=== PATIENT | male | born 1990 | race Caucasian/White ===

== ENCOUNTER 2017-03-21 15:00 | Inpatient (IN) | payer OTHER ==
[~2017-03-21] VITALS: Ht 180.3 cm; Wt 71.7 kg
--- NOTE | ~2017-03-21 | HP ---
Unit #: [id number] #: [id number] Patient: MARY DIAZ [id number] [place] [address] [id number] MR#: [id number] NAME: MARY DIAZ. ROOM: P207 Age: 26 Sex: M Admission Date: 03/21/2017 : 1990 Attending Physician: Sebastien Winters M.D. Admitting Physician: Sebastien Winters M.D. Primary Care Physician: Primary Care Physician No HISTORY AND PHYSICAL HISTORY OF PRESENT ILLNESS Mary is a 26 year old admitted to [address] [place] [address] because of his drug use. He shoots heroin. PAST MEDICAL HISTORY Long history of illicit substance abuse to include IV heroin. PAST SURGICAL HISTORY Rhinoplasty. ALLERGIES No known drug allergies. SOCIAL HISTORY Smokes 1 pack per day. Denies alcohol. Admits to a long history of illicit substance abuse to include IV heroin. FAMILY HISTORY Medically noncontributory. REVIEW OF SYSTEMS CONSTITUTIONAL: No fever or chills. HEENT: Denies any sore throat, ear pain or runny nose. CARDIOVASCULAR: Denies chest pain, irregular heart rhythm or palpitations. CHEST: Denies shortness of breath or cough. No hemoptysis. GASTROINTESTINAL: Denies nausea, vomiting, diarrhea or chronic constipation. ENDOCRINE: Denies history of increased thirst or urination. No recent significant weight loss or gain. GENITOURINARY: Denies dysuria, frequency, or hematuria. SKIN: Denies any rashes. HEMATOLOGIC: Denies history of increased bleeding or bruising. MUSCULOSKELETAL: Denies any hot, swollen joints. No generalized muscle pain. NEUROLOGIC: Denies problems with vision or speech. No frequent, severe headaches. No numbness, tingling or weakness in any extremities. Denies loss of bladder or bowel control. CURRENT MEDICATIONS 1. Detox protocol. 2. Celexa 20 mg daily. PHYSICAL EXAMINATION Unit #: [id number] #: [id number] Patient: MARY DIAZ GENERAL: Alert, well-nourished, in no apparent distress. VITAL SIGNS: Blood pressure 130/62, heart rate 76, respirations 16, temperature 98.6. WEIGHT: 158. HEIGHT: 5 feet 11 inches. SKIN: Warm and dry without rash or lesion. HEENT: Normocephalic. TMs not viewed. Oral and nasal passages clear. Conjunctivae clear. PERRLA. EOMs intact. NECK: Supple without lymphadenopathy or thyromegaly. HEART: Regular rate and rhythm without murmur. LUNGS: Clear. ABDOMEN: Soft, nontender. : Not done. EXTREMITIES: No evidence of cyanosis, clubbing or edema. Moves all without focal deficit. NEUROLOGICAL: Grossly within normal limits. Cranial Nerves: II: Visual blanchard are intact. III, IV AND : Extraocular movements are intact. Pupils are equal, round and reactive to light. V: Facial sensation is grossly normal. VII: Facial movements and expression are normal. VIII: Auditory acuity grossly intact. IX, X: Uvula is midline. Phonation is normal. XI: Patient shrugs shoulders and turns head normally. XII: Tongue protrudes in the midline. Sensory and Motor Function: Sensory and motor sensation is grossly normal. Motor: moves all extremities well. Coordination: Gait is normal. Deep Tendon Reflexes: Intact. DIAGNOSTIC STUDIES ADMISSION LABS: AST/ALT 49/80. IMPRESSION 1. Psychiatric admission. 2. Long history of IV drug use. 3. Elevated liver enzymes on admission. RECOMMENDATIONS PSYCHIATRIC: Per psychiatrist. MEDICAL: 1. See no contraindication to participate in facility's activities. 2. Detox per protocol. 3. Screen for hepatitis C. MEDICAL PROGNOSIS Good. MEDICAL CONDITION Stable. Dictated by... Ana M Lehman P.A.-C. for Monica Roger/flavia TD: 03/22/2017 22:33 Unit #: [id number] #: [id number] Patient: MARY DIAZ JOB #: [id number] HISTORY AND PHYSICAL Page 1 of 1 X Ana M Lehman HISTORY AND PHYSICAL
--- NOTE | ~2017-03-21 | PN ---
Unit #: [id number] #: [id number] Patient: MARY DIAZ [id number] [facility] [address] [place] [address] [id number] MR#: [id number] NAME: MARY DIAZ. ROOM: P207 Age: 26 Sex: M Admission Date: 03/21/2017 : 1990 Attending Physician: Sebastien Winters M.D. Admitting Physician: Sebastien Winters M.D. Primary Care Physician: Primary Care Physician Bonny YAÑEZ PROGRESS NOTES DATE OF SERVICE 03/22/2017 DISCUSSION Mary Diaz is a 26-year-old male seen on 03/22/2017. Patient interviewed, chart reviewed, I obtained information from nursing staff. Patient was compliant, cooperative, mood sad, dysphoric, flat affect. Patient reported having withdrawals from opiates. Vital signs: 98.5, 93, 18, 135/78, height 5 feet 11 inches, weight 158 pounds COMPLETE REVIEW OF SYSTEMS Unremarkable. MENTAL STATUS EXAMINATION GENERAL APPEARANCE: Patient dressed casually. ATTENTION SPAN AND CONCENTRATION: Fair. Oriented in time, place and person. MOOD AND AFFECT: Sad, depressed. SPEECH: Monotone. THOUGHT PROCESS: Goal directed. Patient denied any thoughts of harming self or others, but having passive SI. RECENT AND REMOTE MEMORY: Poor. INSIGHT AND JUDGMENT: Poor. DIAGNOSES Major depressive disorder, recurrent, severe Opiate use disorder, severe ASSESSMENT/PLAN Advised to continue with current treatment protocol with the plan to add Celexa 20 mg daily for depression. Dictated by... Sebastien Winters M.D. [facility] [place] Unit #: [id number] #: [id number] Patient: MARY DIAZ TD: 03/23/2017 00:04 JOB #: [id number] [facility] PROGRESS NOTES Page 1 of 1 X Sebastien Winters MD PROGRESS NOTE
--- NOTE | ~2017-03-21 | PA ---
Unit #: [id number] #: [id number] Patient: MARY DIAZ [id number] [facility] [address] [place] [address] [id number] MR#: [id number] NAME: MARY DIAZ. ROOM: P207 Age: 26 Sex: M Admission Date: 03/21/2017 : 1990 Date of Assessment: Attending Physician: Sebastien Winters M.D. Admitting Physician: Sebastien Winters M.D. Primary Care Physician: Primary Care Physician No PSYCHIATRIC ASSESSMENT INFORMANTS The patient's reliability, fair; chart reliability, good. CHIEF COMPLAINT Detox from opioids. HISTORY OF PRESENT ILLNESS Mr. Mary Diaz is a 26-year-old male, presented with the above-mentioned complaint. The patient reported suicidal ideation with a plan to overdose on heroin. The patient reports that feeling helpless and hopeless. The patient reports he feels that suicide is the only way that things will get better. The patient reports that he uses 0.5 g of IV heroin. The patient last usage was earlier. The patient reported occasional use of cannabis a couple of times a week. The patient reported history of snorting meth, but denied usage for the past month. The patient denied any homicidal ideation. The patient reported depression and suicidal ideation. The patient reports tobacco use, age of onset 9; alcohol, age of onset 15; cannabis, age of onset 10; opioid, age of onset 25; amphetamine, age of onset 20. Longest period of sobriety 6 month, last period of sobriety 2011. The patient reported history of blackout, withdrawal symptom, IV drug use, but no history of any HIV or hepatitis. Current symptoms including diaphoresis, restlessness, sleep. Needing inpatient admission for psychiatric stabilization. PAST PSYCHIATRIC HISTORY Unremarkable for any history of any previous treatment. FAMILY HISTORY AND SOCIAL HISTORY The patient has a poor support system. Family history is remarkable for history of alcohol problem in father. No history of abuse. No legal charges. MEDICAL HISTORY Unremarkable for any chronic medical condition. Musculoskeletal; muscle strength and tone, no atrophy or abnormal movement. Gait normal. MEDICATION HISTORY None. ALLERGIES No known drug allergies. SUBSTANCE ABUSE HISTORY Unit #: [id number] #: [id number] Patient: MARY DIAZ Please see above. REVIEW OF SYSTEMS HEENT: Eyes, clear. Ears, nose, mouth, and throat; clear. CARDIOVASCULAR: Unremarkable. RESPIRATORY: Unremarkable. GI: Unremarkable. : Unremarkable. SKIN: Unremarkable. LYMPH NODE: Unremarkable. NEUROLOGIC: Unremarkable. ENDOCRINE: Unremarkable. HEMATOLOGIC: Unremarkable. ALLERGIC/IMMUNOLOGIC: Unremarkable. MUSCULOSKELETAL: Muscle strength and tone, no atrophy or abnormal movement. Gait normal. MENTAL STATUS EXAMINATION CONSTITUTIONAL: Measurement of vital signs; temperature 98.6, heart rate 77, respirations 16, oxygen saturation 100%, blood pressure 129/63, height 5 feet 11 inches, weight 158 pounds. GENERAL APPEARANCE: The patient dressed casually. The patient did not show any facial deformity. MUSCULOSKELETAL: Please see above. PSYCHIATRIC EXAMINATION Description of speech; regular rate, normal volume, normal articulation, coherent. Description of thought process; goal directed. Description of association; intact. Description of abnormal psychotic thinking; the patient denied any hallucination or delusions, but mood lability, depression, suicidal ideation. Description of patient's judgment; concerning everyday activity, poor. Social situation, poor. Concerning psychiatric condition, poor. Complete mental status examination; oriented in time, place, and person. Recent and remote memory, fair. Attention span and concentration, fair. Language, able to name object and repeat phrases. Fund of knowledge, aware of current event and passive vocabulary intact. Mood and affect, sad and dysphoric. Insight and judgment, fair to poor. ASSETS AND LIABILITIES Assets, the patient is articulate and able to take care of ADL. Liability, history of substance abuse and depression. ADMITTING DIAGNOSES Psychiatric: Major depressive disorder, recurrent, severe, F33.2; opioid use disorder, severe, F11.20. Secondary diagnosis: Deferred. Medical diagnosis: None. Stressors: Psychosocial stressors. PSYCHIATRIC PLAN 1. Advised to admit the patient on the inpatient unit. Provide safe, supportive, and structured environment. 2. Ordered labs; CBC, CMP, UA, UDS. Unit #: [id number] #: [id number] Patient: MARY DIAZ 3. SC1 precaution, detox protocol, and detox monitoring. Plan to consider SSRI for depression. The patient to attend group therapy, individual therapy, chemical dependency group. TREATMENT GOAL To attain euthymic mood, gain insight into his problem, and learn coping skills. DISCHARGE PLAN Plan to stabilize the patient and consider followup in outpatient program. ESTIMATED LENGTH OF STAY 5 to 7 days. Dictated by... Monica Alonso/jarrod TD: 03/22/2017 23:07 JOB #: [id number] PSYCHIATRIC ASSESSMENT Page 1 of 1 X Sebastien Winters MD X PSYCHIATRIC ASSESSMENT
--- NOTE | ~2017-03-21 | DS ---
Unit #: [id number] #: [id number] Patient: MARY DIAZ [id number] [facility] [address] [place] [address] [id number] MR#: [id number] NAME: MARY DIAZ. ROOM: P207 Age: 26 Sex: M Admission Date: 03/21/2017 : 1990 Discharge Date: 03/23/2017 Attending Physician: Sebastien Winters M.D. Primary Care Physician: Primary Care Physician No DISCHARGE SUMMARY REASON FOR ADMISSION Detox. DIAGNOSTIC STUDIES Remarkable for glucose of 149, AST 49, ALT 80. Urine drug screen positive for opiate and marijuana. HOSPITAL COURSE The patient was admitted to inpatient unit on March 21 and discharged on March 23, 2017. The patient was treated on the inpatient unit with group therapy, individual therapy, medication management. The patient was responsive to treatment, showed improvement. Subsequently, the patient was discharged with the plan to follow up in outpatient program. At the time of discharge, the patient denied any suicidal or homicidal ideation, denied any psychotic symptoms. DISCHARGE DIAGNOSES [place] I Major depressive disorder, recurrent, severe, F33.2. Opiate use disorder, severe, F11.20. Cannabis abuse, moderate, F12.20. [place] II Deferred. [place] III None. [place] IV Psychosocial stressors. [place] V INSTRUCTIONS TO PATIENT The patient is to follow up in outpatient clinic as well as with psychiatric social worker. CONDITION AT DISCHARGE The patient pleasant and cooperative, without any psychotic symptoms or any suicidal ideation. PROGNOSIS Guarded. DIET AND ACTIVITY As tolerated. Unit #: [id number] #: [id number] Patient: MARY DIAZ Dictated by... Monica Alonso/tay TD: 03/24/2017 05:52 JOB #: [id number] DISCHARGE SUMMARY Page 1 of 1 X Sebastien Winters MD X DISCHARGE SUMMARY
[~2017-03-21 15:00] MED LIST: KEFLEX500 MG PO; VOLTAREN75 MG PO
[2017-03-22 09:51] LABS: BASOPHIL% 0.7 % (0-2.5); DIFF IND NO; EOSINOPHIL# 0.3 X10e3 (0-0.7); EOSINOPHIL% 6.3 % (0.0-7.0); HEMATOCRIT 43.6 % (38.0-50.0); HEMOGLOBIN 14.8 gm/dL (13.0-16.0); LYMPHOCYTE# 1.4 X10e3 (1.0-3.5); LYMPHOCYTE% 28.8 % (17.0-45.0); MEAN CELL VOLUME 92.8 FL (83-96); MEAN CORPUSCULAR HEMOGLOBIN 31.4 PG (28-34); MEAN CORPUSCULAR HGB CONC 33.9 g/dL (30-36); MEAN PLATELET VOLUME 8.4 FL (6.5-11.5); MONOCYTE# 0.4 X10e3 (0-1.0); MONOCYTE% 8.5 % (3.0-12.0); NEUTROPHIL# 2.8 X10e3 (1.5-7.1); NEUTROPHIL% 55.7 % (40-75); PLATELET COUNT 300 X10e3 (140-420); RED CELL DISTRIBUTION WIDTH 13.1 % (11.0-15.5)
[2017-03-22 09:58] LABS: URINE APPEARANCE CLEAR; URINE BILIRUBIN NEG (NEG); URINE BLOOD NEG (NEG); URINE COLOR DK YELLOW; URINE GLUCOSE NEG (NEG); URINE KETONE NEG (NEG); URINE LEUKOCYTE ESTERASE NEG (NEG); URINE NITRATE NEG (NEG); URINE PROTEIN NEG (NEG); URINE SPECIFIC GRAVITY 1.027 (1.003-1.035)
[2017-03-22 10:22] LABS: ALBUMIN SERUM 3.6 g/dL (3.5-5.0); BILIRUBIN,TOTAL 1.1 mg/dL (0.2-2.0); CALCIUM SERUM 9.1 mg/dL (8.4-10.2); CREATININE SERUM 0.9 mg/dL (0.6-1.4); GLOM FILT RATE Estimated 115.8 mL/min (>60); POTASSIUM 4.5 mmol/L (3.5-5.1); PROTEIN TOTAL SERUM 6.4 g/dL (6.0-8.3)
[2017-03-22 12:10] LABS: AMPHETAMINE NEG (NEG); BARBITURATES NEG (NEG); BENZODIAZEPINES NEG (NEG); COCAINE NEG (NEG); MARIJUANA POS (NEG); OPIATES POS (NEG); TRICYCLIC ANTIDEPRESSANTS NEG (NEG); U METHADONE NEG (NEG)
[2017-03-28 21:18] LABS: HA AB IGM (HEPPAN) Nonreactive (()); HB CORE AB IGM (HEPPAN) Nonreactive (Nonreactive); HB S AG (HEPPAN) Nonreactive (Nonreactive); HEP C AB (HEPPAN) Reactive (Nonreactive)
== END 2017-03-23 15:26 | DRG 885 ==
LOC: P2S 22:47
PROVIDERS: Psychiatry & Neurology Psychiatry
PROC: HZ2ZZZZ Detoxification Services for Substance Abuse Treatment (ICD-10-PCS; principal; 2017-03-21)
DX: F33.2 Major depressive disorder, recurrent severe without psychotic features (principal); F11.20 Opioid dependence, uncomplicated; F12.20 Cannabis dependence, uncomplicated; F17.200 Nicotine dependence, unspecified, uncomplicated
CPT/HCPCS: 80053; 80074; 80307; 81003; 85025; 86592; 87522